=== PATIENT | male | born 1945 | race Caucasian/White ===

== ENCOUNTER → 2020-05-26 10:16 | Outpatient (CLI) | payer MEDICARE, BC, SELFPAY ==
--- NOTE | 2020-05-26 | DI.RAD.S_ITS ---
PROCEDURE: XR KNEE LT 3V INDICATIONS: LEFT KNEE PAIN TECHNIQUE: 3 views of the knee were acquired. COMPARISON: None. FINDINGS: Bones: No fractures or dislocations. No suspicious bony lesions. Mild tricompartmental osteoarthritis. Patellar bone spur. Soft tissues: No joint effusion. No suspicious soft tissue calcifications. IMPRESSION: 1. Osteoarthritis. 2. No fracture. No acute osseous lesion. If symptoms and/or clinical suspicion for pathology persists, further assessment with repeat radiographs (7-10 days) or advanced imaging (e.g. CT, MRI or bone scan) may be helpful. Dictated by: Holley Fallon MD, PhD on 05/26/2020 at 17:01 Approved by: Holley Fallon MD, PhD on 05/26/2020 at 17:01
== END ==
PROVIDERS: PCP Internal Medicine; Referring Provider Internal Medicine; Visit Provider Internal Medicine
DX: M25.562 Pain in left knee (principal); M17.12 Unilateral primary osteoarthritis, left knee
CPT/HCPCS: 73562

== ENCOUNTER → 2020-05-27 10:47 | Outpatient (CLI) | payer MEDICARE, OTHER, SELFPAY ==
[2020-05-27 12:39] LABS: Add Manual Diff / Slide Review NO; Basophils Absolute Auto 0 /uL (0-100); Basophils Percent Auto 0.8 % (0-2); Eosinophils Absolute Auto 200 /uL (0-450); Eosinophils Percent Auto 2.8 % (2-4); Hematocrit 43.5 % (41-53); Hemoglobin 14.2 g/dL (13.5-17.5); Lymphocytes Absolute Auto 1200 /uL (1100-4500); Lymphocytes Percent Auto 20.2 % (25-40); Mean Corpuscular HGB Conc 32.6 % (30-36); Mean Corpuscular Hemoglobin 29.4 PG (26-34); Mean Corpuscular Volume 90.4 fL (80-100); Monocytes Absolute Auto 300 /uL (0-900); Monocytes Percent Auto 5.9 % (3-14); Neutrophils Absolute Auto 4000 /uL (1500-7000); Neutrophils Percent Auto 70.3 % (50-75); Platelet Count 220 X10^3/uL (150-400); Red Blood Cell Count 4.82 X10^6/uL (4.5-5.9); Red Cell Distribution Width 13.3 % (11.6-14.8); White Blood Cell Count 5.8 X10^3/uL (4.5-11.0)
[2020-05-27 13:06] LABS: Alanine Aminotransferase 29 IU/L (<50); Albumin 4.6 g/dL (3.5-5.0); Albumin Globulin Ratio 1.6 (1.0-2.8); Alkaline Phosphatase 77 U/L (38-126); Aspartate Aminotransferase 27 IU/L (17-59); BUN Creatinine Ratio 23.6 (6-22); Bilirubin Total 1.2 mg/dL (0.2-1.3); Blood Urea Nitrogen 21 mg/dL (9-20); Calcium 9.4 mg/dL (8.4-10.2); Carbon Dioxide 32 mmol/L (22-32); Chloride 104 mmol/L (98-107); Cholesterol 196 mg/dL (140-199); Estimated Glomerular Filt Rate > 60.0 mL/min (>60); Globulin 2.8 g/dL (1.7-4.1); Glucose 97 mg/dL (80-110); HDL Cholesterol 40 mg/dL (40-60); HEMOLYSIS < 15 (0-50); LDL Cholesterol Calculated 88 mg/dL (<100); Potassium 4.9 mmol/L (3.4-5.1); Sodium 141 mmol/L (137-145); Total Protein 7.4 g/dL (6.3-8.2); Triglycerides 338 mg/dL (35-150)
[2020-05-27 13:27] LABS: TSH w/ Reflex to FT4 1.32 uIU/mL (0.47-4.68)
[2020-05-28 06:09] LABS: PSA Ultrasensitive 0.565 ng/mL (0.000-4.000)
== END ==
PROVIDERS: PCP Internal Medicine; Referring Provider Internal Medicine; Visit Provider Internal Medicine
DX: E78.5 Hyperlipidemia, unspecified (principal); I10 Essential (primary) hypertension; F51.01 Primary insomnia; Z12.5 Encounter for screening for malignant neoplasm of prostate; M25.562 Pain in left knee
CPT/HCPCS: 36415; 80053; 80061; 84153; 84443; 85025

== ENCOUNTER → 2020-10-07 08:06 | Outpatient (CLI) | payer MEDICARE, OTHER, SELFPAY ==
[2020-10-07 09:42] LABS: Cholesterol 203 mg/dL (140-199); HDL Cholesterol 30 mg/dL (40-60)
[2020-10-07 10:14] LABS: Triglycerides 669 mg/dL (35-150)
== END ==
PROVIDERS: PCP Internal Medicine; Referring Provider Internal Medicine; Visit Provider Internal Medicine
DX: E78.2 Mixed hyperlipidemia (principal); E78.01 Familial hypercholesterolemia
CPT/HCPCS: 36415; 80061

== ENCOUNTER → 2021-01-04 14:42 | Outpatient (ROUT) | payer MEDICARE, OTHER, SELFPAY ==
[2021-01-04 15:02] LABS: BUN Creatinine Ratio 22.2 (6-22); Blood Urea Nitrogen 26 mg/dL (9-20); Calcium 9.6 mg/dL (8.4-10.2); Carbon Dioxide 33 mmol/L (22-32); Chloride 100 mmol/L (98-107); Cholesterol 205 mg/dL (140-199); Estimated Glomerular Filt Rate > 60.0 mL/min (>60); Glucose 99 mg/dL (80-110); HDL Cholesterol 38 mg/dL (40-60); HEMOLYSIS < 15 (0-50); Potassium 4.4 mmol/L (3.4-5.1); Sodium 140 mmol/L (137-145); Triglycerides 450 mg/dL (35-150)
== END ==
PROVIDERS: PCP Internal Medicine; Visit Provider Internal Medicine
DX: E78.2 Mixed hyperlipidemia (principal); I10 Essential (primary) hypertension; E78.1 Pure hyperglyceridemia
CPT/HCPCS: 80048; 80061

== ENCOUNTER → 2024-04-03 15:20 | Outpatient (CLI) | payer MEDICARE, OTHER, SELFPAY ==
--- NOTE | 2024-04-03 | DI.MRI.S_ITS ---
PROCEDURE: MR KNEE LT WO CON INDICATIONS: TEAR OF LATERAL MENISCUS,CURRENT INJURY LEFT KNEE TECHNIQUE: Noncontrast sagittal PD fast spin echo and T2 fast spin echo with fat saturation, sagittal 3-D FLASH with fat saturation; coronal T1 spin echo and PD fast spin echo with fat saturation, and axial PD fast spin echo with fat saturation through the knee. COMPARISON: None. FINDINGS: Image quality: Excellent. Menisci: In the medial meniscus, there is full-thickness tear of the posterior root. There is small area of ossification of the posterior horn of the medial meniscus. There is moderate extrusion of the medial meniscus body. In the lateral meniscus, the posterior root is not well visualized. There is mild extrusion of the lateral meniscus body. Cruciate ligaments: Chronic, full-thickness tear of the ACL. The PCL is intact. Medial structures: The medial collateral ligament appears intact. The posterior oblique ligament, semimembranosus tendon insertions, oblique popliteal ligament, and meniscocapsular junction appear intact. Visualized portions of the pes anserinus tendons appear normal. No abnormal bursal fluid. Lateral structures: The lateral collateral ligament, long and short heads of the biceps femoris tendon appear intact. The popliteus tendon appears normal; the popliteofibular ligament appears intact. The posterosuperior and anteroinferior popliteomeniscal fascicles appear intact. The arcuate and fabellofibular ligaments appear intact, on either side of the lateral inferior geniculate artery. Iliotibial band appears normal. Anterior structures: The quadriceps tendon is unremarkable. Mild tendinosis of the proximal patellar tendon. Patellar alignment is normal. No femoral trochlear dysplasia or ventral trochlear prominence. No edema in the infrapatellar fat pad. Bones and cartilage: Cartilage of the patellofemoral compartment is grossly well maintained. In the medial compartment, there is small area of high-grade chondral thinning in the medial aspect of the medial femoral condyle. In the lateral compartment, there is focal low-grade chondral loss in the lateral compartment predominant tricompartmental osteoarthritis tibial plateau. Subchondral marrow edema at the tibial eminence, reactive. Additional mild subchondral marrow edema in the lateral tibial plateau, likely degenerative. Joint space: Small knee effusion. Trace popliteal cyst. Popliteal vasculature is unremarkable. IMPRESSION: 1. Full-thickness tear of the posterior root of the medial meniscus. 2. The posterior root of the lateral meniscus is not well visualized. Underlying tear cannot be excluded. 3. Chronic, full-thickness tear of the ACL. 4. Mild medial and lateral compartment chondrosis. Dictated by: Irene Bhakta M.D. on 04/04/2024 at 10:42 Approved by: Irene Bhakta M.D. on 04/04/2024 at 10:54
== END ==
PROVIDERS: PCP Internal Medicine; Referring Provider Orthopaedic Surgery; Visit Provider Orthopaedic Surgery
DX: S83.242A Other tear of medial meniscus, current injury, left knee, initial encounter (principal); S83.282A Other tear of lateral meniscus, current injury, left knee, initial encounter; S83.512A Sprain of anterior cruciate ligament of left knee, initial encounter; M94.262 Chondromalacia, left knee; M25.462 Effusion, left knee; X58.XXXA Exposure to other specified factors, initial encounter
CPT/HCPCS: 73721